=== PATIENT | female | born 1945 | race Caucasian/White ===

== ENCOUNTER → 2018-05-27 17:03 | Outpatient (CLI) | payer SELFPAY | END | disposition home or self-care (01) | LOC: D.LABREF 17:03 | DX: M17.11 Unilateral primary osteoarthritis, right knee (principal); Z11.8 Encounter for screening for other infectious and parasitic diseases ==

== ENCOUNTER → 2018-06-18 12:52 | Outpatient (CLI) | payer MEDICARE, BC | END | disposition home or self-care (01) | LOC: D.CT 12:52 | DX: Z12.2 Encounter for screening for malignant neoplasm of respiratory organs (principal) ==

== ENCOUNTER 2018-07-11 11:55 | Inpatient (IN) | payer MEDICARE, BC ==
[~2018-07-11] VITALS: Ht 165.1 cm; Wt 116.8 kg
[2018-07-15] MEDS ORDERED: ASPIRIN EC81 M1 PO (14:43)
[2018-07-15] MEDS ORDERED: KLOR-CON 1010 MEQ PO (14:44)
[2018-07-15] MEDS ORDERED: NAPROSYN500 MG PO (14:44)
[2018-07-15] MEDS ORDERED: LASIX40 MG PO (14:44)
[2018-07-15] MEDS ORDERED: LIPITOR20 MG PO (14:45)
[2018-07-15] MEDS ORDERED: MAGNESIUM OXID500 MG PO (14:45)
[2018-07-15] MEDS ORDERED: OS-CAL500 MG PO (14:46)
[2018-07-15] MEDS ORDERED: VITAMIN D5000 UNIT PO (14:46)
[2018-07-16 12:14] LABS: BASOPHILS 0.6 % (0-2); HEMOGLOBIN 13.9 g/dL (12-16); IMMATURE GRANULOCYTES 0.1 % (0-5); LYMPHOCYTES 21.8 % (15-50); MCH 28.8 pg (26.0-34.0); MCHC 33.1 g/dL (31.0-37.0); MCV 87.1 fL (80.0-100.0); MEAN PLATELET VOLUME 12.4 fL (7.4-10.4); MONOCYTES 7.7 % (2-11); NEUTROPHILS 67.8 % (40-80); PLATELET COUNT 142 10x3/uL (130-400); RBC 4.82 10x6/uL (4.00-5.40); RDW 13.7 % (11.5-14.5); WBC 7.2 10x3/uL (4.8-10.8)
[2018-07-16 12:17] LABS: APPEARANCE CLOUDY (CLEAR); BILIRUBIN NEGATIVE (NEGATIVE); COLOR YELLOW (YELLOW); GLUCOSE NEGATIVE (NEGATIVE); KETONE NEGATIVE (NEGATIVE); NITRITE NEGATIVE (NEGATIVE); PROTEIN NEGATIVE (NEGATIVE); SPECIFIC GRAVITY 1.015 (1.005-1.020); UROBILINOGEN NORMAL (NORMAL)
[2018-07-16 12:24] LABS: CALCIUM 9.6 mg/dL (8.5-10.1); CARBON DIOXIDE 27.5 mmol/L (21.0-32.0); CREATININE - SERUM 1.4 mg/dL (0.6-1.3); POTASSIUM - SERUM 3.5 mmol/L (3.5-5.1)
[2018-07-16 12:26] LABS: APTT 32.7 SECONDS (22.8-39.4); INR 0.94 (0.85-1.17); PROTIME 12.1 SECONDS (11.6-15.0)
[2018-07-21 05:56] VITALS: BP 110/90; BMI 43.3
--- NOTE | 2018-07-21 11:51 | OP ---
PATIENT NAME: GRANT HARRY MEDICAL RECORD: [id number] :43 LOCATION:D.MS [id number] ADMISSION DATE:07/21/18 SURGEON: PASCALE HERNANDEZ MD DATE OF OPERATION: 07/21/2018 PREOPERATIVE DIAGNOSIS: Degenerative arthritis, left knee. POSTOPERATIVE DIAGNOSIS: Degenerative arthritis, left knee. PROCEDURE: Left total knee arthroplasty. SURGEON: Pascale Hernandez MD BOILERMAKER MECHANIC: Betito Winkler APN, SPENCER INTRAOPERATIVE COMPLICATIONS: None. SUMMARY OF PATHOLOGIC FINDINGS: The patient had extreme tricompartmental osteoarthritis consistent with preoperative radiographs and diagnosis. IMPLANTS USED: Adam Triathlon system, size 4 distal femur, size 11 polyethylene insert, size 31 x 9 symmetric patella, size 4 primary baseplate, cemented. OPERATIVE SUMMARY IN DETAIL: After obtaining the appropriate preoperative orthopedic surgery consent as well as anesthetic consultation, evaluation and clearance, the patient was brought to the operating room and placed on the operating table in supine position. After general laryngeal mask airway was administered, tourniquet was placed about the proximal aspect of left lower extremity. Left lower extremity was then prepped and draped in routine sterile fashion. The leg was elevated and exsanguinated, tourniquet was inflated to 350 mmHg. Routine midline incision was taken down for paramedian arthrotomy. The patella was everted, distal femur was exposed. Soft tissue excision was done in the usual fashion. This was followed by creation of an intramedullary guide hole for intramedullary guided distal femoral cut. Next, the entire proximal tibia was exposed. Again, intramedullary guided cut was made for the tibia. Distal femoral chamfer cuts were made after measurements were taken. Having completed this, trials were put into place corresponding to the above-mentioned final implants, taken through a full range of motion and found to be stable in all planes. Final distal femoral and proximal tibial preparations were made. This was followed by excision of the severely arthritic patellar articular surface. Final patellar preparations were made. All debris was then lavaged from the wound using pulsatile lavage director of marketing analytics. Bone ends were then re-exposed and dried. All components were then cemented into place. All excess cement was removed and after the cement was allowed to harden, the knee was taken through range of motion and found to be stable in all planes. Having completed this, closure was completed by Freeman Winkler APN including #2 Ethibond for the capsule, #1 Vicryl for skin, 2-0 Vicryl, and finally skin johann. Please note that prior to closing the capsule, a gram of vancomycin, a gram of tobramycin, and a gram of TXA were all placed in the knee. Having completed this, sterile bandages were applied. Tourniquet was deflated. The patient was awakened, taken to the recovery room in stable condition. All final needle and sponge counts were correct. TRANSINT:[id number] Voice Confirmation ID: [id number] DOCUMENT ID: [id number] OPERATIVE REPORT [id number] GRANT HARRY MD, PASCALE FLYNN at 1151 CC: [id number] DICTATION DATE: 07/21/18 1001 MOLD CHIPPER: 07/21/18 1150 ADM IN [place] [address] [place] [address]
[2018-07-21 12:01] VITALS: BP 116/65; Ht 165.1 cm; Wt 116.8 kg
--- NOTE | 2018-07-21 12:01 | NUR ---
PT ADMITTED TO 2208 FROM RECOVERY VIA BED. PT ALERT AND ORIENTED. NO ACUTE DISTRESS NOTED AT THIS TIME. IV TO LEFT HAND INTACT, SITE WITHOUT REDNESS OR EDEMA. DRESSING C/D/I TO LEFT KNEE. ORIENTED TO CL AND BED CONTROLS. DENIES FURTHER NEEDS AT THIS TIME. ENCOURAGED TO CALL WITH NEEDS. WILL CONTINUE TO MONITOR.
[2018-07-21 12:10] VITALS: BP 107/58
[2018-07-21 12:25] VITALS: BP 108/62
[2018-07-21 12:45] VITALS: BP 116/65
[2018-07-21 20:00] VITALS: BP 102/58
--- NOTE | 2018-07-21 21:45 | NUR ---
A&O X 4. DENIES PAIN AT THIS TIME. UNABLE TO MOVE LEFT TOES, BUT EXTREMETIES EQUALLY WARM W/ STRONG DISTAL PULSES. 1L O2 IN USE SPO2 IS 95%, STATES SHE ISN'T NORMALLY ON O2 AT HOME. WILL CONTINUE TO MONITOR.
--- NOTE | 2018-07-22 00:50 | NUR ---
PT RESTING QUIETLY IN BED. NO ACUTE DISTRESS NOTED. O2 @ 1L NC IN PLACE. REPORTS PAIN 3/10 AT THIS TIME TO LEFT KNEE. TOES WARM TO TOUCH, REMAINS UNABLE TO MOVE TOES AT THIS TIME. IV TO LEFT HAND WITH 1/2 NS @ 100 ML/HR INFUSING VIA PUMP. SITE WITHOUT REDNESS OR EDEMA. DRESSING C/D/I TO LEFT KNEE, ICE PACK IN PLACE. GENERALIZED EDEMA TO BILAT LOWER EXTREMITIES NOTED. SCD TO RLE, PLEXI PULSE TO LLE. DENIES FURTHER NEEDS AT THIS TIME. CL WITHIN REACH. ENCOUARGED TO CALL WITH NEEDS. CONTINUE POC
--- NOTE | 2018-07-22 03:54 | NUR ---
RESTING QUITELY IN BED NO APPARENT DISTRESS CALL KEYON WILSON
[2018-07-22 04:00] VITALS: BP 102/51
[2018-07-22 04:42] LABS: HEMATOCRIT 32.2 % (36.0-48.0); HEMOGLOBIN 10.6 g/dL (12-16); MCH 28.6 pg (26.0-34.0); MCHC 32.9 g/dL (31.0-37.0); RBC 3.7 10x6/uL (4.00-5.40); RDW 13.6 % (11.5-14.5); WBC 8.7 10x3/uL (4.8-10.8)
--- NOTE | 2018-07-22 08:10 | NUR ---
PT C/O OF PAIN TO LEFT UPPER LEG, RATING PAIN 5/10 AT THIS TIME. PAIN MEDICATION ADMINISTERED PER MD ORDERS AT THIS TIME. WILL CONTINUE TO MONITOR.
[2018-07-22 09:15] VITALS: BP 112/48
[2018-07-22 13:37] VITALS: BP 112/43
--- NOTE | 2018-07-22 15:22 | MORECARE ---
CASE MANAGEMENT DISCHARGE SUMMARY PATIENT: GRANT HARRY UNIT: [id number] ADM DATE: 07/21/18 AGE: 72 : 44 SEX: F ROOM/BED: D.2208 AUTHOR: JUDY MCKNIGHT PHYSICIAN: REFERRING PHYSICIAN: PASCALE HERNANDEZ MD DATE OF SERVICE: 07/22/18 Discharge Plan Patient Name: GRANT HARRY [facility] [facility] 1945 Planned Disposition: Home Health Service Anticipated Discharge Date: Discharge Date: Expected LOS: Initial Reviewer: [email or web address] Initial Review Date: 07/21/2018 Generated: 07/22/18 4:22 pm DCPIA - Discharge Planning Initial Assessment Updated by [email or web address]: Tresa Velazquez on 07/22/18 3:21 pm * Is the patient Alert and Oriented? Yes * How many steps to enter\exit or inside your home? * PCP JESUS TINEO APN * [facility] * Preadmission Environment Home with Family * ADLs Independent * Equipment Bedside Commode Walker * Other Equipment CPM * List name and contact numbers for known caregivers / representatives who currently or will assist patient after discharge: LUCIANO HARRY () [phone] * Verbal permission to speak to the caregivers and representatives has been obtained from the patient. Yes * Community resources currently utilized None * Additional services required to return to the preadmission environment? Yes * Can the patient safely return to the preadmission environment? Yes * Has this patient been hospitalized within the prior 30 days at any hospital? No Patient Name: GRANT HARRY Page [phone] at 1522 All edits/amendments must be made on the electronic document DICTATION DATE: 07/22/18 1522 ACCOUNTANT BOOKKEEPER: ANTONY 07/22/18 152 RPT#: [id number] DC DATE: STATUS: ADM IN [facility] [address] [place] [address] END OF REPORT
--- NOTE | 2018-07-22 15:33 | MORECARE ---
CASE MANAGEMENT DISCHARGE SUMMARY PATIENT: GRANT HARRY UNIT: [id number] ADM DATE: 07/21/18 AGE: 72 : 44 SEX: F ROOM/BED: D.2208 AUTHOR: ROXANNA,DOC PHYSICIAN: REFERRING PHYSICIAN: PASCALE HERNANDEZ MD DATE OF SERVICE: 07/22/18 Discharge Plan Patient Name: GRANT HARRY Facility: [facility]:[place] : 1945 Planned Disposition: Home Health Service Anticipated Discharge Date: Discharge Date: Expected LOS: Initial Reviewer: [email or web address] Initial Review Date: 07/21/2018 Generated: 07/22/18 4:33 pm Comments DCP- Discharge Planning Updated by [email or web address]: Tresa Velazquez on 07/22/18 2:[address] Patient Name: GRANT HARRY Admission Status: Elective Accout number: [id number] Admission Date: 07-21-2018 : 1945 Admission Diagnosis: Attending: PASCALE HERNANDEZ Current LOS: 1 Anticipated DC Date: Planned Disposition: Home Health Service Primary Insurance: MEDICARE A & B Discharge Planning Comments: CM met with patient to assess discharge planning needs. Patient stated that prior to surgery she was independent with her care at home. 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 She wanted to go to inpatient rehab in [place], but after talking to Elba at Inpatient rehab she will not qualify. I spoke with the patient about her other options and she would like to go home with [facility]. GINA signed with [employer] [facility]. copy in chart and original to patient. There is one step to enter in her home. CM will continue to follow and assist with DC planning needs. I will send referral to [employer] Certified Medication Aide: Tresa Velazquez DCPIA - Discharge Planning Initial Assessment Updated by [email or web address]: Tresa Velazquez on 07/22/18 3:21 pm * Is the patient Alert and Oriented? Yes * How many steps to enter\exit or inside your home? * PCP JESUS TINEO HAT LINING BLOCKER * Pharm[facility] * Preadmission Environment Home with Family * ADLs Independent * Equipment Bedside Commode Walker * Other Equipment CPM * List name and contact numbers for known caregivers / representatives who currently or will assist patient after discharge: LUCIANO HARRY () [phone] * Verbal permission to speak to the caregivers and representatives has been obtained from the patient. Yes * Community resources currently utilized None * Additional services required to return to the preadmission environment? Yes * Can the patient safely return to the preadmission environment? Yes * Has this patient been hospitalized within the prior 30 days at any hospital? No Last DP export: 07/22/18 2:22 p Patient Name: GRANT HARRY Page [phone] at 1533 All edits/amendments must be made on the electronic document DICTATION DATE: 07/22/181531 OPTICAL LABORATORY MANAGER: ANTONY 07/22/181531 RPT#: [id number] DC DATE: STATUS: ADM IN [facility] [address] [place] [address] END OF REPORT
--- NOTE | 2018-07-22 15:45 | MORECARE ---
CASE MANAGEMENT DISCHARGE SUMMARY PATIENT: GRANT HARRY UNIT: [id number] ADM DATE: 07/21/18 AGE: 72 : 44 SEX: F ROOM/BED: D.2208 AUTHOR: ROXANNA,DOC PHYSICIAN: REFERRING PHYSICIAN: PASCALE HERNANDEZ MD DATE OF SERVICE: 07/22/18 Discharge Plan Patient Name: GRANT HARRY Facility: [facility]:[place] : 1945 Planned Disposition: Home Health Service Anticipated Discharge Date: Discharge Date: Expected LOS: Initial Reviewer: [email or web address] Initial Review Date: 07/21/2018 Generated: 07/22/18 4:45 pm Comments DCP- Discharge Planning Updated by [email or web address]: Tresa Velazquez on 07/22/18 2:[address] Patient Name: GRANT HARRY Admission Status: Elective Accout number: [id number] Admission Date: 07-21-2018 : 1945 Admission Diagnosis: Attending: PASCALE HERNANDEZ Current LOS: 1 Anticipated DC Date: Planned Disposition: Home Health Service Primary Insurance: MEDICARE A & B Discharge Planning Comments: CM met with patient to assess discharge planning needs. Patient stated that prior to surgery she was independent with her care at home. 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 She wanted to go to inpatient rehab in [place], but after talking to Elba at Inpatient rehab she will not qualify. I spoke with the patient about her other options and she would like to go home with [facility]. GINA signed with [employer] [facility]. copy in chart and original to patient. There is one step to enter in her home. CM will continue to follow and assist with DC planning needs. I will send referral to [employer] Developer: Tresa Velazquez DCPIA - Discharge Planning Initial Assessment Updated by [email or web address]: Tresa Velazquez on 07/22/18 3:21 pm * Is the patient Alert and Oriented? Yes * How many steps to enter\exit or inside your home? * PCP JESUS TINEO WORKERS COMPENSATION CLAIMS ADJUSTER * [facility] * Preadmission Environment Home with Family * ADLs Independent * Equipment Bedside Commode Walker * Other Equipment CPM * List name and contact numbers for known caregivers / representatives who currently or will assist patient after discharge: LUCIANO HARRY () [phone] * Verbal permission to speak to the caregivers and representatives has been obtained from the patient. Yes * Community resources currently utilized None * Additional services required to return to the preadmission environment? Yes * Can the patient safely return to the preadmission environment? Yes * Has this patient been hospitalized within the prior 30 days at any hospital? No External Providers [facility] Contact Date: Service Request Date: Service Type: Resolution: Reviewer: Comments: Last DP export: 07/22/18 2:33 p Patient Name: GRANT HARRY Page [phone] at 1544 All edits/amendments must be made on the electronic document DICTATION DATE: 07/22/185 FRUIT RANCHER: ANTONY 07/22/18 1545 RPT#: [id number] DC DATE: STATUS: ADM IN [facility] [address] [place] [address] END OF REPORT
[2018-07-22 20:00] VITALS: BP 108/56
--- NOTE | 2018-07-22 22:00 | NUR ---
REMOVED CPM, C/O PAIN 5-11/17. DESCRIBES PAIN TO LEFT KNEE "ACHY." DRESSING TO KNEE CLEAN/DRY/INTACT. PERIPHERAL PULSES PALPABLE. MILD EDEMA TO LEFT ANKLE, BUT LESSENED FROM LAST NIGHT. LOWER EXTREMITIES APPEAR TO HAVE A WRINKLED SKIN (PRUNEY) LOOK. IV TO LEFT HAND SALINE-LOCKED. ASPIRATES AND FLUSHES WITH EASE. WILL CONTINUE TO MONITOR.
[2018-07-23] VITALS: BP 94/49
--- NOTE | 2018-07-23 02:30 | NUR ---
PT LYING IN BED RESTING, NO SIGNS OF DISTRESS. NO NEEDS AT THIS TIME. AGREE W/ BARREL STAVE INSPECTOR ASSESSMENT. CL IN REACH, WILL CONTINUE TO MONITOR
[2018-07-23 04:00] VITALS: BP 129/52
[2018-07-23 05:47] LABS: HEMATOCRIT 30.9 % (36.0-48.0); HEMOGLOBIN 10.2 g/dL (12-16); MCH 29.1 pg (26.0-34.0); MCV 88.3 fL (80.0-100.0); MEAN PLATELET VOLUME 13.5 fL (7.4-10.4); RBC 3.5 10x6/uL (4.00-5.40); RDW 14.2 % (11.5-14.5)
[2018-07-23] MEDS ORDERED: ELIQUIS2.5 MG PO (08:48)
[2018-07-23] MEDS ORDERED: HYDROCODON-ACE1 EA10 PO (08:48)
--- NOTE | 2018-07-23 10:03 | MORECARE ---
CASE MANAGEMENT DISCHARGE SUMMARY PATIENT: GRANT HARYR UNIT: [id number] ADM DATE: 07/21/18 AGE: 72 : 44 SEX: F ROOM/BED: D.2208 AUTHOR: ROXANNA,DOC PHYSICIAN: REFERRING PHYSICIAN: PASCALE HERNANDEZ MD DATE OF SERVICE: 07/23/18 Discharge Plan Patient Name: GRANT HARRY Facility: [facility]:[place] : 1945 Planned Disposition: Home Health Service Anticipated Discharge Date: Discharge Date: Expected LOS: Initial Reviewer: [email or web address] Initial Review Date: 07/21/2018 Generated: 07/23/18 11:03 am Comments DCP- Discharge Planning Updated by [email or web address]: Tresa Velazquez on 07/23/18 9:[address] PATIENT WILL BE DISCHARGING HOME TODAY WITH HOME HEALTH. [employer] [facility] IN [place]. THEY WILL ACCEPT THE PATIENT, SPOKE WITH Sara. SHE HAS ALL DME NEEDED HER FAMILY WILL BE PICKING HER UP. CM TO FOLLOW AND ASSIST NEEDED DCP- Discharge Planning Updated by [email or web address]: Tresa Velazquez on 07/22/18 2:[address] Patient Name: GRANT HARRY Admission Status: Elective Accout number: [id number] Admission Date: 07-21-2018 : 1945 Admission Diagnosis: Attending: PASCALE HERNANDEZ Current LOS: 1 Anticipated DC Date: Planned Disposition: Home Health Service Primary Insurance: MEDICARE A & B Discharge Planning Comments: CM met with patient to assess discharge planning needs. Patient stated that prior to surgery she was independent with her care at home. 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 She wanted to go to inpatient rehab in [place], but after talking to Elba at Inpatient rehab she will not qualify. I spoke with the patient about her other options and she would like to go home with Home Health. GINA signed with [employer] [facility]. copy in chart and original to patient. There is one step to enter in her home. CM will continue to follow and assist with DC planning needs. I will send referral to [employer] Breakdown Worker: Tresa Velazquez DCPIA - Discharge Planning Initial Assessment Updated by [email or web address]: Tresa Velazquez on 07/22/18 3:21 pm * Is the patient Alert and Oriented? Yes * How many steps to enter\exit or inside your home? * PCP JESUS TINEO APN * [facility] * Preadmission Environment Home with Family * ADLs Independent * Equipment Bedside Commode Walker * Other Equipment CPM * List name and contact numbers for known caregivers / representatives who currently or will assist patient after discharge: LUCIANO HARRY () [phone] * Verbal permission to speak to the caregivers and representatives has been obtained from the patient. Yes * Community resources currently utilized None * Additional services required to return to the preadmission environment? Yes * Can the patient safely return to the preadmission environment? Yes * Has this patient been hospitalized within the prior 30 days at any hospital? No Last DP export: 07/22/18 2:45 p Patient Name: GRANT HARRY Page [phone] at 1003 All edits/amendments must be made on the electronic document DICTATION DATE: 07/23/18 1002 DIGESTER COOK: ANTONY 07/23/18 1002 RPT#: [id number] DC DATE: STATUS: ADM IN [facility] [address] [place] [address] END OF REPORT
[2018-07-23 10:25] VITALS: BP 140/90
--- NOTE | 2018-07-23 12:22 | MORECARE ---
CASE MANAGEMENT DISCHARGE SUMMARY PATIENT: GRANT HARRY UNIT: [id number] ADM DATE: 07/21/18 AGE: 72 : 44 SEX: F ROOM/BED: D.2208 AUTHOR: ROXANNA,DOC PHYSICIAN: REFERRING PHYSICIAN: PASCALE HERNANDEZ MD DATE OF SERVICE: 07/23/18 Discharge Plan Patient Name: GRANT HARRY Facility: [facility]:[place] : 1945 Planned Disposition: Home Health Service Anticipated Discharge Date: Discharge Date: Expected LOS: Initial Reviewer: [email or web address] Initial Review Date: 07/21/2018 Generated: 07/23/18 1:21 pm Comments DCP- Discharge Planning Updated by [email or web address]: Tresa Velazquez on 07/23/18 9:[address] PATIENT WILL BE DISCHARGING HOME TODAY WITH HOME HEALTH. [facility] [facility] IN [place]. THEY WILL ACCEPT THE PATIENT, SPOKE WITH Sara. SHE HAS ALL DME NEEDED HER FAMILY WILL BE PICKING HER UP. CM TO FOLLOW AND ASSIST NEEDED DCP- Discharge Planning Updated by [email or web address]: Tresa Velazquez on 07/22/18 2:[address] Patient Name: GRANT HARRY Admission Status: Elective Accout number: [id number] Admission Date: 07-21-2018 : 1945 Admission Diagnosis: Attending: PASCALE HERNANDEZ Current LOS: 1 Anticipated DC Date: Planned Disposition: Home Health Service Primary Insurance: MEDICARE A & B Discharge Planning Comments: CM met with patient to assess discharge planning needs. Patient stated that prior to surgery she was independent with her care at home. 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 She wanted to go to inpatient rehab in [place], but after talking to Elba at Inpatient rehab she will not qualify. I spoke with the patient about her other options and she would like to go home with Home Health. GINA signed with [employer] [facility]. copy in chart and original to patient. There is one step to enter in her home. CM will continue to follow and assist with DC planning needs. I will send referral to [employer] Mangle Tender Cloth: Tresa Velazquez DCPIA - Discharge Planning Initial Assessment Updated by [email or web address]: Tresa Velazquez on 07/22/18 3:21 pm * Is the patient Alert and Oriented? Yes * How many steps to enter\exit or inside your home? * PCP JESUS TINEO APN * [facility] * Preadmission Environment Home with Family * ADLs Independent * Equipment Bedside Commode Walker * Other Equipment CPM * List name and contact numbers for known caregivers / representatives who currently or will assist patient after discharge: LUCIANO HARRY () [phone] * Verbal permission to speak to the caregivers and representatives has been obtained from the patient. Yes * Community resources currently utilized None * Additional services required to return to the preadmission environment? Yes * Can the patient safely return to the preadmission environment? Yes * Has this patient been hospitalized within the prior 30 days at any hospital? No External Providers [facility] Next Contact Date: Service Request Date: Service Type: Resolution: Reviewer: Comments: Last DP export: 07/23/18 9:03 a Patient Name: GRANT HARRY Page [phone] at 1222 All edits/amendments must be made on the electronic document DICTATION DATE: 07/23/18 1221 PRODUCTION EXPERT: ANTONY 07/23/18 1221 RPT#: [id number] DC DATE: STATUS: ADM IN [facility] [address] [place] [address] END OF REPORT
--- NOTE | 2018-07-25 14:34 | MORECARE ---
CASE MANAGEMENT DISCHARGE SUMMARY PATIENT: GRANT HARRY UNIT: [id number] ADM DATE: 07/21/18 AGE: 72 : 44 SEX: F ROOM/BED: D.2208 AUTHOR: ROXANNA,DOC PHYSICIAN: REFERRING PHYSICIAN: PASCALE HERNANDEZ MD DATE OF SERVICE: 07/25/18 Discharge Plan Patient Name: GRANT HARRY Facility: [facility]:[place] : 1945 Planned Disposition: Home Health Service Anticipated Discharge Date: Discharge Date: 07/23/2018 Expected LOS: 0 Initial Reviewer: [email or web address] Initial Review Date: 07/21/2018 Generated: 07/25/18 3:34 pm Comments DCP- Discharge Planning Updated by [email or web address]: Tresa Velazquez on 07/23/18 9:[address] PATIENT WILL BE DISCHARGING HOME TODAY WITH HOME HEALTH. [facility] IN [place]. THEY WILL ACCEPT THE PATIENT, SPOKE WITH Sara. SHE HAS ALL DME NEEDED HER FAMILY WILL BE PICKING HER UP. CM TO FOLLOW AND ASSIST NEEDED DCP- Discharge Planning Updated by [email or web address]: Tresa Velazquez on 07/22/18 2:[address] Patient Name: GRANT HARRY Admission Status: Elective Accout number: [id number] Admission Date: 07-21-2018 : 1945 Admission Diagnosis: Attending: PASCLAE HERNANDEZ Current LOS: 1 Anticipated DC Date: Planned Disposition: Home Health Service Primary Insurance: MEDICARE A & B Discharge Planning Comments: CM met with patient to assess discharge planning needs. Patient stated that prior to surgery she was independent with her care at home. 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 She wanted to go to inpatient rehab in [place], but after talking to Elba at Inpatient rehab she will not qualify. I spoke with the patient about her other options and she would like to go home with Home Health. GINA signed with [employer] [facility]. copy in chart and original to patient. There is one step to enter in her home. CM will continue to follow and assist with DC planning needs. I will send referral to [employer] Risk Management Consultant: Tresa Velazquez DCPIA - Discharge Planning Initial Assessment Updated by [email or web address]: Tresa Velazquez on 07/22/18 3:21 pm * Is the patient Alert and Oriented? Yes * How many steps to enter\exit or inside your home? * PCP JESUS TINEO APN * Pharmacy [facility] * Preadmission Environment Home with Family * ADLs Independent * Equipment Bedside Commode Walker * Other Equipment CPM * List name and contact numbers for known caregivers / representatives who currently or will assist patient after discharge: LUCIANO HARRY () [phone] * Verbal permission to speak to the caregivers and representatives has been obtained from the patient. Yes * Community resources currently utilized None * Additional services required to return to the preadmission environment? Yes * Can the patient safely return to the preadmission environment? Yes * Has this patient been hospitalized within the prior 30 days at any hospital? No Last DP export: 07/23/18 11:22 a Patient Name: GRANT HARRY Page 08486 at 1434 All edits/amendments must be made on the electronic document DICTATION DATE: 07/25/18 1433 MICA MINER BLASTING: ANTONY 07/25/18 1433 RPT#: [id number] DC DATE:07/23/18 STATUS: DIS IN [facility] [address] [place] [address] END OF REPORT
== END 2018-07-23 13:41 | disposition home health service (06) | DRG 470 ==
LOC: D.SDCHOLD 07-21 05:00 → D.MS 07-21 05:00 → D.SDCHOLD 07-21 07:45 → D.MS 07-21 11:32
PROVIDERS: ADMIT Orthopaedic Surgery
PROC: 0SRD0JZ Replacement of Left Knee Joint with Synthetic Substitute, Open Approach (ICD-10-PCS; principal; 2018-07-21 07:45)
DX: M17.12 Unilateral primary osteoarthritis, left knee (principal); I45.10 Unspecified right bundle-branch block